=== PATIENT | female | born 1960 | race Caucasian/White ===

== ENCOUNTER 2020-09-07 05:20 | Inpatient (IN) | payer MEDICARE ==
[~2020-09-07] VITALS: Ht 160 cm; Wt 77.6 kg
[2020-09-07] VITALS (13 sets, daily range): BP systolic 113–142; BP diastolic 66–91
--- NOTE | ~2020-09-07 | EMS ---
[place] [address] EMS Patient Care Report Name: FIDEL CANO Room: [address] IN [facility]#: [id number] Admission: 09/07/20 Attend Phys: Gabe Rosenberg Discharge: Date of : 58 Report #: [id number] THIS REPORT FOR: //name// Report Transmitted: 09/08/2020 14:42 EMS Care Summary [facility] 2020-043054 @ 09/07/2020 04:16 Incident Location [address] [place] [address] Patient FIDEL CANO Female, 60 Years 1960 Patient Address [address] [place] [address] Patient History Hypertension (HTN),Smoking, Patient Allergies Penicillin allergy, Chief Complaint right arm weakness Disposition Transported No Lights/[place] Dispatch Reason Stroke/CVA Transported To [facility] Narrative Dispatched for 60 y/o female woke up can't move her arm. Upon arrival Pt is sitting in living room in recliner covered under blanket. Pt complains of numbness/tingling to right ar from elbow to hand, pt son says started about an hour ago, he says she called him at 0344 and it started just before that. 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 Pt says she had [facility] [address] [place] [address] EMS Patient Care Report Name: JEROMEFIDEL Matty Room: [address] ADM IN [facility]#: [id number] Admission: 09/07/20 Attend Phys: Gabe Rosenberg Discharge: Date of : 58 Report #: [id number] an episode just like this yesterday afternoon can't say what time just knows it was before dark and thinks lasted about an hour. Pt says she's been under a lot of stress lately and was on phone with niece, niece's in hospital having surgery. Pt does not want to go to ER, just lost and is very scared, but EMS and son are able to convince her to go and be evaluated. TX: assessed, pulse ox, vitals, SL failed, monitor, d-stick, and transport. En route: pt is still very scared to go to hospital, but does calm down after talk to her a bit. B/P was hypertensive at 190/100 at house and has come down to 120/80's. Report via radio, nurse present CT. Initial Vitals @05:05P: 95,SpO2: 93, @04:40P: 104,SpO2: 97, @05:10P: 95,R: 20,BP: 129/85,SpO2: 96, @04:39P: 103,R: 20,BP: 156/86,Pain: 0/10,SpO2: 96, @04:27P: 100,R: 20,BP: 190/100,GCS: 15,Glucose: 267,SpO2: 96,Revised Trauma: 12, Assessments @04:25MENTAL:Person Oriented,Time Oriented,Event Oriented,Place Oriented,SKIN:HEENT:Head/Face: No Abnormalities,Neck/Airway: No Abnormalities,LUNG SOUNDS:General: No Abnormalities,ABDOMEN:General: No Abnormalities,PELVIS//GI:EXTREMITIES:Left Arm: Other,Right Leg: Other,Right Arm: Weakness,Left Leg: Other,PULSE:Radial: 2+ Normal,NEURO: Impression Stroke Procedures @04:46Saline Lock 5cc (20 ga) Site: Antecubital-LeftResponse: UnchangedFailed Timeline 04:16,Call Received 04:16,Dispatched 04:16,Psap Call 04:20,En Route 04:23,On Scene 04:24,At Patient 04:27,BP: 190/100 M,PULSE: 100,RR: 20 R,SPO2: 96 Ox,ETCO2: ,B,PAIN: ,GCS: 15, 04:38,Depart Scene 04:39,BP: 156/86 M,PULSE: 103,RR: 20 R,SPO2: 96 Ox,ETCO2: ,BG: ,PAIN: 0,GCS: , 04:40,BP: / M,PULSE: 104,RR: R,SPO2: 97 Ox,ETCO2: ,BG: ,PAIN: ,GCS: , 04:46,Saline Lock 5cc 20 ga Site: Antecubital-Left,Response: UnchangedFailed, 05:05,BP: / M,PULSE: 95,RR: R,SPO2: 93 Ox,ETCO2: ,BG: ,PAIN: ,GCS: , 05:10,BP: 129/85 M,PULSE: 95,RR: 20 R,SPO2: 96 Ox,ETCO2: ,BG: ,PAIN: ,GCS: , 05:16,At Destination [address] [address] EMS Patient Care Report Name: FIDEL CANO Room: [address] IN [place]a#: [id number] Admission: 09/07/20 Attend Phys: Gabe Rosenberg Discharge: Date of : 58 Report #: [id number] 05:21,Transfer Patient 06:06,Call Closed 06:06,In District Disclaimer v1.1 Copyright 2020 [employer] This EMS Care Summary contains data elements from the applicable legal record (which may be displayed differently). It is designed to provide pertinent information for the following purposes: continuity of care, clinical quality, and state data reporting. The complete legal record is available to ED staff and administrators of the receiving hospital in [employer]'s Patient Tracker. All data is provided "as is."
[2020-09-07 05:53] LABS: ABSOLUTE BASOPHILS 0.1 thou/uL (0.0-0.2); ABSOLUTE EOSINOPHILS 0.1 thou/uL (0.0-0.7); ABSOLUTE LYMPHOCYTES 2.4 thou/uL (0.8-5.3); ABSOLUTE MONOCYTES 0.7 thou/uL (0.0-1.2); ABSOLUTE NEUTROPHILS 9.3 thou/uL (1.6-8.1); BASOPHILS 0.6 %; EOSINOPHILS 1.1 %; HEMATOCRIT 46.7 % (37.0-47.0); HEMOGLOBIN 15.6 gm/dL (12.0-15.0); LYMPHOCYTES 18.8 %; MCH 28.9 pg (26.0-34.0); MCHC 33.4 g/dL (28.0-37.0); MCV 86.6 fL (80.0-100.0); MONOCYTES 5.6 %; MPV 8.7 fl. (7.2-11.1); NUCLEATED RBCS 0 /100WBC; PLATELET COUNT* 203 thou/uL (150-400); POLYS 73.9 %; RBC 5.39 mil/uL (4.20-5.00); RDW-CV 15.3 % (10.5-14.5); WBC 12.6 thou/uL (4.0-11.0)
[2020-09-07 06:02] LABS: APTT 25.6 Seconds (25.0-31.3); INR 0.9
[2020-09-07 06:13] LABS: CALCIUM 8.6 mg/dL (8.5-10.1); CREATININE 0.8 mg/dL (0.6-1.3); POTASSIUM 4.2 mmol/L (3.5-5.1)
[2020-09-07 06:18] LABS: ALBUMIN 3.2 g/dL (3.4-5.0); TOTAL BILIRUBIN 0.2 mg/dL (<0.1-1.0); TOTAL PROTEIN 7.1 g/dL (6.4-8.2)
[2020-09-07 10:12] LABS: CHOLESTEROL 232 mg/dL (<200); HDL CHOLESTEROL 37 mg/dL (>40); LDL CHOLESTEROL 151 mg/dL (<100); TC:HDL 6.3 Ratio (Not establshd); TRIGLYCERIDE 221 mg/dL (<150); VLDL 44 mg/dL (<40)
[2020-09-07 10:13] LABS: SERUM ASSESSMENT Clear
--- NOTE | 2020-09-07 10:14 | EKG ---
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
[2020-09-07] MEDS ORDERED: TOPROL XL50 MG PO (10:37)
[2020-09-07] MEDS ORDERED: OXYCODONE HCL20 M1 PO (10:38)
[2020-09-07] MEDS ORDERED: LIPITOR10 MG PO (10:39)
[2020-09-07] MEDS ORDERED: BACLOFEN 10MG T10 MG PO (10:39)
[2020-09-07] MEDS ORDERED: MELOXICAM15 MG PO (10:40)
[2020-09-07] MEDS ORDERED: KLONOPIN1 MG PO (10:41)
--- NOTE | 2020-09-07 17:05 | EKG ---
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1960 Requested By: Azam Bucio Order Number: [id number] Reading MD: Azam Bucio Measurements Intervals [place] Rate: 84 P: 61 AK: 181 QRS: -10 QRSD: 80 T: 42 QT: 362 QTc: 428 Interpretive Statements Sinus rhythm Atrial premature complex Inferior infarct, recent Compared to ECG 09/07/2020 05:37:38 Atrial premature complex(es) now present Myocardial infarct finding still present Electronically Signed On 09-07-2020 17:05:34 FUEL OIL TRUCK DRIVER by Azam Bucio [email or web address] <ELECTRONICALLY SIGNED> By: Azam Bucio MD, FACC 09/07/20 1705 1538 1538 Azam Bucio MD, FAC /EPI
[2020-09-08] VITALS (7 sets, daily range): BP systolic 126–132; BP diastolic 77–78
[2020-09-08 04:17] LABS: HEMATOCRIT 47.3 % (37.0-47.0); HEMOGLOBIN 15.6 gm/dL (12.0-15.0); MCH 28.6 pg (26.0-34.0); MCHC 33.1 g/dL (28.0-37.0); MCV 86.5 fL (80.0-100.0); MPV 8.8 fl. (7.2-11.1); RBC 5.47 mil/uL (4.20-5.00); WBC 11.9 thou/uL (4.0-11.0)
[2020-09-08 04:36] LABS: ALBUMIN 3.4 g/dL (3.4-5.0); CALCIUM 8.9 mg/dL (8.5-10.1); CREATININE 0.7 mg/dL (0.6-1.3); POTASSIUM 4.4 mmol/L (3.5-5.1); TOTAL BILIRUBIN 0.4 mg/dL (<0.1-1.0); TOTAL PROTEIN 6.9 g/dL (6.4-8.2)
[2020-09-08] MEDS ORDERED: ASPIR 8181 MG PO (08:58)
[2020-09-08] MEDS ORDERED: EFFIENT10 MG PO (08:58)
[2020-09-08] MEDS ORDERED: NITROGLYCERIN0.4 MG SUBLING (08:58)
[2020-09-08] MEDS ORDERED: LIPITOR 40 MG T40 M1 PO (08:58)
--- NOTE | 2020-09-08 09:56 | EKG ---
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1960 Requested By: Azam Bucio Order Number: [id number] Denis MD: Sheng Leyva Measurements Intervals [place] Rate: 87 P: 71 GA: 179 QRS: -10 QRSD: 91 T: 26 QT: 383 QTc: 461 Interpretive Statements Sinus rhythm Probable left atrial enlargement Inferior infarct, age indeterminate Compared to ECG 09/07/2020 15:38:51 Atrial premature complex(es) no longer present Myocardial infarct finding still present Electronically Signed On 09-08-2020 9:56:12 OCCUPATIONAL REHABILITATION AIDE by Sheng Leyva [email or web address] <ELECTRONICALLY SIGNED> By: Sheng Leyva MD, [facility] 09/08/20 0956 0334 0334 Sheng Leyva MD, [facility] /EPI
[2020-09-08] MEDS ORDERED: METFORMIN HCL500 M3 PO (11:20)
--- NOTE | 2020-09-08 14:15 | CARD ---
[address] [address] CARDIAC CATH REPORT Name: GILBERTOClaudetteFIDEL Matty Room: [address] IN M.R.#: [id number] Admission: 09/07/20 Attend Phys: Gabe Rosenberg Discharge: Date of : 58 Report #: [id number] THIS REPORT FOR: cc: FAM - No family physician/PCP FAM - No family physician/PCP ~ Sheng Leyva MD [facility] APPROVED REPORT Study performed: 09/07/2020 13:34:00 Patient Details Patient Status: In-Patient Room #: Event Personnel Dr. Bucio, Dr. Leyva, Sharon Ybarra RN, Mamadou CHOUDHARY, Leatha Rodriguez RTR Procedures Performed Left heart catheterization left ventriculography selective coronary arteriography and PTCA with stenting of the mid right coronary artery Indication Non-STEMI Risk Factors Hypercholesterolemia Admission/Lab Medications/Medications given during procedure Angiomax 12 ml, Angiomax 27.3 ml/hr, Aspirin 81 mg PO, Effient 60 mg PO Procedure Narrative The patient was brought electively to the Cardiac Catheterization Laboratory and was prepped and draped in a sterile manner. The right femoral was infiltrated with 2% Lidocaine subcutaneous anesthesia. A 6 Malay [place] sheath was inserted into the right femoral artery. Coronary angiography was performed using coronary diagnostic catheters. The right coronary system was accessed and visualized with a 6F JR4 catheter. The left coronary system was accessed and visualized with a 6F JL4 catheter. The left ventricle was accessed and visualized with a 6F Straight [place] catheter. Left ventricular/Aortic Valve gradient assessed via catheter pullback. Left ventriculogram was performed in [place] [address] CARDIAC CATH REPORT Name: FIDEL CANO Room: [address] IN [facility]#: [id number] Admission: 09/07/20 Attend Phys: Gabe Rosenberg Discharge: Date of : 58 Report #: [id number] femoral angiogram was performed . Closure device was deployed with a 6 Fr Angioseal STS. There was no hematoma. Intraoperative Conscious Sedation Sedation start time: 14:06 Case end Time: 14:46 Fentanyl 50.0 mcg Versed 2.0 mg Fluoro Time: 7.8 minutes Dose: DAP 49819 cGycm2 1441 mGy Contrast Type and Amount: visipaque 200 ml Coronary Angiography The patient's coronary anatomy is right dominant. Diagnostic Cath Left Main 0% narrowing LAD 75% eccentric proximal LAD stenosis at the level of the first septal leather coverer Circumflex Nondominant vessel with 30% proximal narrowing Right Coronary Large dominant vessel with 90% mid vessel stenosis and local thrombus at the site Left Ventriculography The left ventricle is normal in size with normal contractility. The left ventricular ejection fraction is estimated to be 65%. Left ventricular wall motion abnormalities are present. There is no mitral insufficiency. Subtle mid inferior hypokinesis is noted Hemodynamics The aortic pressure is 130/70 mmHg with a mean of 82 mmHg. PCI Technique Lesion Anticoagulation was achieved with Angiomax. Patient was preloaded with Angiomax 12 ml. Percutaneous coronary intervention was performed on the Mid right coronary artery. The lesion stenosis prior to intervention was 90% with MIRACLE 3 flow. A 6F JR4 Guide Catheter was used to engage the right ostium. A BMW 190 cm Interventional Guidewire was used to cross the lesion. BALLOON DILATION A Balloon catheter 2.5 x 8 mm Trek RX was inserted and inflated up to 8atm for 10seconds. Additional Inflation: 18atm for 11seconds. Additional Inflation: 18atm [place] 10[place]. [place] [address] CARDIAC CATH REPORT Name: FIDEL CANO Room: [address]#: [id number] Admission: 09/07/20 Attend Phys: Gabe Rosenberg Discharge: Date of : 58 Report #: [id number] STENT DEPLOYMENT A drug-eluting stent 3.0 x 15 mm Harshil RX was inserted and inflated up to 11atm for 8seconds. Additional Inflation: 12atm for 8seconds. An additional drug-eluting stent, 3.0 x 8 [place] RX was deployed in the distal portion of the RCA stented region to achieve satisfactory lesion coverage. Inflations: 10 chase for 12 seconds; 15 chase for 9 seconds. POST STENT DEPLOYMENT BALLOON DILATION A Balloon catheter 3.0 x 8 [place] Trek RX was inserted and inflated up to 12atm for 11seconds. Additional Inflation: 15atm for 13seconds. Additional Inflation: 18atm for 11seconds. Final angiography reveals 0 % stenosis with MIRACLE 3 flow. Conclusion 1. Significant multivessel coronary artery disease characterized by the following: A 90% mid right coronary stenosis with local thrombus at the site, this being a large dominant vessel B 75% eccentric proximal LAD stenosis C 30% narrowing of the proximal portion of the nondominant circumflex 2. Normal global left ventricular systolic function, estimated ejection fraction being 65% with subtle mid inferior hypokinesis 3. Successful PCI with deployment of 2 drug-eluting stents at the site of 90% mid right coronary stenosis with 0% residual narrowing MIRACLE-3 flow to the distal vessel and no residual thrombus Recommendations Cardiac Risk Reduction Program Aggressive Medical Therapy Medications Administered Aspirin (any) [place] [address] CARDIAC CATH REPORT Name: FIDEL CANO Room: [address] IN [facility]#: [id number] Admission: 09/07/20 Attend Phys: Gabe Rosenberg Discharge: Date of : 58 Report #: [id number] Diagnostic Cath Approved by: Azam Bucio MD Date/Time: 09/07/2020 16:28:24 <ELECTRONICALLY SIGNED> By: Sheng Leyva MD, FACC 09/08/20 1415 14 141Sheng Leyva MD, FAC /INF
[2020-09-08 21:05] LABS: GLYCOHEMOGLOBIN (HGB A1C) 11.8 % (4.8-5.6)
--- NOTE | 2020-09-10 11:43 | CON ---
[address] [address] CONSULTATION Name: FIDEL CANO Matty Room: [address] IN M.R.#: [id number] Admission: 09/07/20 Attend Phys: Gabe Rosenberg Discharge: 09/08/20 Date of : 58 Report #: [id number] THIS REPORT FOR: cc: [place] - No family physician/PCP FAM - No family physician/PCP ~ Azam Bucio MD [facility] DATE OF SERVICE: 09/07/2020 CARDIOLOGY CONSULTATION INDICATION: Non-ST elevation myocardial infarction. HISTORY OF PRESENT ILLNESS: The patient is a 60-year-old white female with no prior cardiac history, who was seen in the Emergency Room with primary complaints of right arm and hand numbness and weakness. The patient is noted to have a troponin of 9. The patient had minimal midsternal chest discomfort described as her typical indigestion. She does have a long history of gastroesophageal reflux with prior Fritz fundoplication. CARDIAC RISK FACTORS: Include dyslipidemia, hypertension, family history of coronary artery disease and tobacco use. PAST MEDICAL HISTORY: 1. Hypertension. 2. Dyslipidemia. 3. Chronic tobacco use. 4. Gastroesophageal reflux disease. 5. History of cholecystectomy. 6. Hysterectomy and right fissure repair. 7. Osteoarthritis. 8. Chronic bronchitis. ALLERGIES: PENICILLIN. MEDICATIONS: None. SOCIAL HISTORY: The patient denies use of alcohol. She smokes daily. FAMILY HISTORY: Positive for coronary artery disease. REVIEW OF SYSTEMS: As per HPI, otherwise, unremarkable. PHYSICAL EXAMINATION: VITAL SIGNS: Blood pressure 140/85, pulse 95 and regular. [facility] [address] [place] [address] CONSULTATION Name: FIDEL CANO Room: [address]#: [id number] Admission: 09/07/20 Attend Phys: Gabe Rosenberg Discharge: 09/08/20 Date of : 58 Report #: [id number] GENERAL: This is a pleasant young lady in no distress. Mood and affect appropriate. HEENT: Extraocular muscles intact. Mucous membranes are moist. NECK: Shows no jugular venous distention. There are no carotid bruits. CHEST: Reveals diminished breath sounds without wheezes or rales. CARDIOVASCULAR: Reveals a regular rhythm with normal S1, S2. I do not appreciate gallop or murmur. ABDOMEN: Reveals normal bowel sounds. The abdomen is soft, nontender. EXTREMITIES: Shows no edema. Peripheral pulses 2+ and palpable. SKIN: Dry. LABORATORY DATA: Reviewed. Sodium 134, potassium 4.2, chloride 103, bicarbonate 24, BUN 17, creatinine 0.8, serum glucose 342. LFTs are within normal limits. Troponin on arrival 9.15. NT-proBNP 1430. Coags within normal limits. White blood cell count 12.6, hemoglobin 15.6, platelet count 203,000. Chest x-ray: No acute cardiopulmonary abnormality. A 12-lead EKG shows ST elevation and very subtle degree in the inferior leads with Q-wave formation. I do not appreciate other changes. IMPRESSION AND RECOMMENDATIONS: 1. Myocardial infarction, likely recent troponin now 9. Suspect this is ongoing. We will proceed with angiography and possible intervention pending those results. The patient has been started on a heparin drip. The patient received aspirin in the Emergency Room. 2. History of hypertension. Blood pressure borderline presently. She is on no medications at this time. Will likely be on at least beta adelia and possibly MARILU inhibitor/ARB. 3. Dyslipidemia. We will check fasting lipid profile. The patient will be started on atorvastatin 40 mg daily. 4. Tobacco use. Smoking cessation advised. 5. Hyperglycemia, probable diabetes. We will check hemoglobin A1c. <ELECTRONICALLY SIGNED> By: Azam Bucio MD, FACC 09/10/20 1143 0951 1020Azam Bucio MD, FACC /nt
== END 2020-09-08 16:35 | disposition home or self-care (01) | DRG 246 ==
LOC: M.ERS 05:20 → M.TBA-ER 06:53 → M.2W 09:17
PROVIDERS: Internal Medicine Cardiovascular Disease; Personal Emergency Response Attendant; ADMIT Internal Medicine; ATTEND Internal Medicine
PROC: B211YZZ Fluoroscopy of Multiple Coronary Arteries using Other Contrast (ICD-10-PCS; principal; 2020-09-07)
PROC: 4A023N7 Measurement of Cardiac Sampling and Pressure, Left Heart, Percutaneous Approach (ICD-10-PCS; principal; 2020-09-07)
PROC: 027035Z Dilation of Coronary Artery, One Artery with Two Drug-eluting Intraluminal Devices, Percutaneous Approach (ICD-10-PCS; principal; 2020-09-07)
PROC: B215YZZ Fluoroscopy of Left Heart using Other Contrast (ICD-10-PCS; principal; 2020-09-07)
DX: I21.4 Non-ST elevation (NSTEMI) myocardial infarction (principal); I50.33 Acute on chronic diastolic (congestive) heart failure; I63.9 Cerebral infarction, unspecified; I21.9 Acute myocardial infarction, unspecified; M19.90 Unspecified osteoarthritis, unspecified site; R73.9 Hyperglycemia, unspecified; I25.10 Atherosclerotic heart disease of native coronary artery without angina pectoris; E78.5 Hyperlipidemia, unspecified; K21.9 Gastro-esophageal reflux disease without esophagitis; I11.0 Hypertensive heart disease with heart failure; Z20.828 Contact with and (suspected) exposure to other viral communicable diseases; Z90.49 Acquired absence of other specified parts of digestive tract; Z90.710 Acquired absence of both cervix and uterus; Z88.0 Allergy status to penicillin

== ENCOUNTER 2020-10-07 09:47 | Observation (INO) | payer OTHER ==
[2020-10-07] VITALS (10 sets, daily range): BP systolic 135–165; BP diastolic 62–86
[~2020-10-07] VITALS: Ht 160 cm; Wt 73.0 kg
[~2020-10-07 09:47] MED LIST: ASPIR 8181 MG PO; BACLOFEN 10MG T10 MG PO; EFFIENT10 MG PO; KLONOPIN1 MG PO; LIPITOR 40 MG T40 M1 PO; LIPITOR10 MG PO; MELOXICAM15 MG PO; MELOXICAM7.5 MG PO; METFORMIN HCL500 M3 PO; NITROGLYCERIN0.4 MG SUBLING; OXYCODONE HCL20 M1 PO; TOPROL XL50 MG PO
[2020-10-07 10:55] LABS: HEMATOCRIT 45.3 % (37.0-47.0); HEMOGLOBIN 15.3 gm/dL (12.0-15.0); MCH 28.8 pg (26.0-34.0); MCHC 33.7 g/dL (28.0-37.0); MCV 85.5 fL (80.0-100.0); MPV 9.5 fl. (7.2-11.1); RBC 5.3 mil/uL (4.20-5.00); RDW-CV 14.4 % (10.5-14.5); WBC 12.5 thou/uL (4.0-11.0)
[2020-10-07 11:03] LABS: CALCIUM 9.4 mg/dL (8.5-10.1); CREATININE 0.6 mg/dL (0.6-1.3); POTASSIUM 4.4 mmol/L (3.5-5.1)
[2020-10-07 11:06] LABS: APTT 23.6 Seconds (25.0-31.3); PROTIME 10.4 Seconds (9.20-11.50)
[2020-10-07 11:07] LABS: ALBUMIN 3.8 g/dL (3.4-5.0); TOTAL BILIRUBIN 0.3 mg/dL (<0.1-1.0); TOTAL PROTEIN 7.8 g/dL (6.4-8.2)
--- NOTE | 2020-10-07 12:55 | NUR ---
post cath patient to 226 via bed patient oriented to and call light denies pain r groin site c/d/i and no hematoma see admission assmt and hx
--- NOTE | 2020-10-07 16:02 | EKG ---
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 : 1960 Requested By: Azam Bucio Order Number: [id number] Reading MD: Azam Bucio Measurements Intervals [place] Rate: 75 P: 51 NV: 188 QRS: -12 QRSD: 84 T: -22 QT: 384 QTc: 429 Interpretive Statements Sinus rhythm Left atrial enlargement Nonspecific T abnormalities, inferior leads Compared to ECG 09/08/2020 03:34:27 T-wave abnormality now present Myocardial infarct finding no longer present Electronically Signed On 10-07-2020 16:02:44 NURSE PLASTICS by Azam Bucio [email or web address] <ELECTRONICALLY SIGNED> By: Azam Bucio MD, FAC 10/07/20 1602 1106 1106 Azam Bucio MD, [facility] /EPI
--- NOTE | 2020-10-07 16:47 | CARD ---
[address] [address] CARDIAC CATH REPORT Name: FIDEL CANO Matty Room: [address] Shantell Bustamante#: [id number] Admission: 10/07/20 Attend Phys: Azam Bucio MD Discharge: Date of : 58 Report #: [id number] THIS REPORT FOR: cc: Fredrick Ruiz Reuel M. DO ~ Sheng Leyva MD [facility] APPROVED REPORT Study performed: 10/07/2020 11:25:43 Patient Details Patient Status: Out-Patient Room #: The patient is a 60 year-old female Event Personnel Azam Bucio Agricultural Extension Specialist, Sheng Leyva Gas Substation Operator, Tila Farmer RN RN, Mamadou Fraser AMBULANCE OPERATIONS SUPERVISOR Scrub, Lay Miramontes RTR Monitor, Leatha Rodriguez RTR Monitor Procedures Performed Art Access - R femoral artery, Left Heart Cath w/or w/o Coronaries LHC, DARELL Place w/wo Plasty Single LAD , Hemostasis w/ Mynx Indication Unstable angina Risk Factors Hypercholesterolemia, Hypertension Previous Procedures/Diagnoses Previous PCI, Previous UT Admission/Lab Medications/Medications given during procedure Angiomax IV 11 ml, Angiomax Drip IV 25.67 ml per hr, Nitroglycerin SL 0.4 mg, Effient PO 30 mg Procedure Narrative The patient was brought electively to the Cardiac Catheterization Laboratory and was prepped and draped in a sterile manner. The right femoral was infiltrated with 2% Lidocaine subcutaneous anesthesia. A [place] 6 FR sheath was inserted into the right femoral artery. Coronary angiography was performed using coronary diagnostic catheters. The right coronary system was [place] [address] CARDIAC CATH REPORT Name: FIDEL CNAO Room: [address] Shantell Bustamante#: [id number] Admission: 10/07/20 Attend Phys: Azam Bucio MD Discharge: Date of : 58 Report #: [id number] a 6F JR4 catheter. The left coronary system was accessed and visualized with a 6F XBLAD 3.5 Guide catheter. The left ventricle was accessed and visualized with a 6F JR4 catheter. Left ventricular/Aortic Valve gradient assessed via catheter pullback. Pre-demployment femoral angiogram was performed . Closure device was deployed with a 6 Fr Mynx. The patient tolerated the procedure well and there were no complications associated with the procedure. There was no hematoma. Intraoperative Conscious Sedation Sedation start time: 11:49 Case end Time: 12:16 Fentanyl 100 mcg Versed 2 mg Fluoro Time: 6.1 minutes Dose: DAP 46121 cGycm2 756 mGy Contrast Type and Amount: Visipaque 180 ml Diagnostic Cath Left Main 0% narrowing LAD 80% proximal stenosis involving the takeoff of the first diagonal branch Circumflex 30% proximal narrowing Right Coronary 30% proximal and 40% acute marginal narrowing with a widely patent mid right coronary stent Left Ventriculography Left Ventriculography was not performed. Hemodynamics The aortic pressure is 126/58 mmHg with a mean of 86 mmHg. The left ventricular pressure is 135/5 mmHg with a mean of mmHg. The left ventricular end diastolic pressure is 20 mmHg. PCI Technique Lesion Anticoagulation was achieved with Angiomax. Patient was preloaded with Angiomax IV 11 ml. Percutaneous coronary intervention was performed on the Proximal left anterior descending artery coronary artery. The lesion stenosis prior to intervention was 80% with MIRACLE 3 flow. A 6F XB LAD 3.5 Guide Catheter was used to engage the lm ostium. A BMW 190cm Interventional Guidewire was used to cross the lesion. BALLOON DILATION A Balloon catheter Eup[place] SC 2.25x12 was inserted [place] [address] CARDIAC CATH REPORT Name: FIDEL CANO [address] [id number] Admission: 10/07/20 Attend Phys: Azam Bucio MD Discharge: Date of : 58 Report #: [id number] 8.00atm for 12seconds. Additional Inflation: 14.00atm for 13seconds. STENT DEPLOYMENT A drug-eluting stent [place] RX Stent 2.5X12mm was inserted and inflated up to 10.00atm for 7seconds. Additional Inflation: 12.00atm for 8seconds. Final angiography reveals 10 % stenosis with MIRACLE 3 flow. Conclusion 1. Significant coronary artery disease characterized by the following: A 80% proximal LAD stenosis involving the takeoff of the first diagonal branch B 30% proximal circumflex narrowing C dominant right coronary artery with 30% proximal and 40% acute marginal narrowing with a widely patent mid right coronary stent 2 moderate elevation of left ventricular end-diastolic pressure at rest 3. Successful PCI with deployment of a drug-eluting stent at site of 80% proximal LAD stenosis with 10% residual narrowing and MIRACLE-3 flow to the distal vessel Recommendations Cardiac Risk Reduction Program Aggressive Medical Therapy Medications Administered Prasugrel Diagnostic Cath Approved by: Azam Bucio MD Date/Time: 10/07/2020 16:45:47 <ELECTRONICALLY SIGNED> By: Sheng Leyva MD, [facility] 10/07/20 1647 46 1647Sheng Leyva MD, FACC /INF
[2020-10-08 02:03] VITALS: BP 101/46
[2020-10-08 05:25] VITALS: BP 88/50
[2020-10-08 07:30] VITALS: BP 113/62
--- NOTE | 2020-10-08 08:55 | NUR ---
CM SPOKE TO THE PT TO DISCUSS CM ASSESSMENT. PT A&O, AND INDEPENDENT WITH ADL'S. PT RESIDES AT HOME ALONE. PT USES 0 DME. PT HAS 0 HX OF HH OR SNF. NO CM D/C PLANNING NEEDS ANTICIPATED. CM WILL REMAIN AVAILABLE TO ASSIST AND FOLLOW NEEDED.
[2020-10-08 11:02] VITALS: BP 156/81
[2020-10-08 11:46] VITALS: BP 156/81
--- NOTE | 2020-10-08 11:49 | NUR ---
PATIENT DISCHARGING HOME TODAY. ORDERS RECEIVED. ASSESSMENT UNREMARKABLE. UP AMBULATORY IN ROOM. NO QUESTIONS/CONCERNS AT TIME OF DISCHARGE. IV DISCONTINUED. ACTIVITY ASSISTANT REMOVED AND RETURNED TO NURSE'S DESK. ALL BELONGINGS PACKED AND LEAVING WITH THE PATIENT
--- NOTE | 2020-10-10 11:34 | D ---
[address] [address] DISCHARGE SUMMARY Name: FIDEL CANO Room: [address] Shantell Bustamante#: [id number] Admission: 10/07/20 Attend Phys: Azam Bucio MD Discharge: 10/08/20 Date of : 58 Report #: [id number] THIS REPORT FOR: cc: Fredrick Ruiz Reuel M. DO ~ Azam Bucio MD [facility] DISCHARGE DIAGNOSES: 1. Unstable angina. 2. Coronary artery disease. 3. Essential hypertension. 4. Mixed hyperlipidemia. 5. Tobacco abuse. 6. Type 2 diabetes mellitus. PROCEDURES: 1. Coronary angiography. 2. Left heart catheterization. 3. Percutaneous coronary intervention with drug-eluting stent placement to the [id number] left anterior descending coronary artery. HOSPITAL COURSE: The patient was brought to the cardiac catheterization lab electively for staged procedure to intervene upon critically stenosed [id number]-dj-[id number] left anterior descending coronary artery. The intervention was undertaken without complication. The patient had a drug-eluting stent placed at the site of a 70-80% narrowing with excellent result. The patient had no complication. DISCHARGE MEDICATIONS: Will include metoprolol succinate 50 mg daily, oxycodone 20 mg q.4 hours p.r.n. pain, clonazepam 1 mg p.o. b.i.d., Effient 10 mg daily, atorvastatin 40 mg daily, Nitrostat sublingual p.r.n., aspirin 81 mg daily, metformin 500 mg b.i.d., meloxicam 7.5 mg daily. DISPOSITION: The patient has appointment to follow up in the office in the next 2-3 weeks. <ELECTRONICALLY SIGNED> By: Azam Bucio MD, FACC 10/10/20 1134 [id number] Bucio MD, FACC /nt
== END 2020-10-08 12:05 | disposition home or self-care (01) ==
LOC: M.CL 09:47 → M.TBA-CV 13:12 → M.2W 13:26
PROVIDERS: ADMIT Internal Medicine Cardiovascular Disease; ATTEND Internal Medicine Cardiovascular Disease
DX: I25.110 Atherosclerotic heart disease of native coronary artery with unstable angina pectoris (principal); E11.9 Type 2 diabetes mellitus without complications; E78.2 Mixed hyperlipidemia; I10 Essential (primary) hypertension; Z79.82 Long term (current) use of aspirin; Z79.899 Other long term (current) drug therapy